=== PATIENT | female | born 1965 | race Caucasian/White ===

== ENCOUNTER 2017-02-24 09:30 | Emergency (ER) | payer BC ==
[~2017-02-24] VITALS: Ht 167.6 cm; Wt 96.2 kg
--- NOTE | ~2017-02-24 | EKG ---
[place] [address] [facility] [place] [address] ELECTROCARDIOGRAM REPORT Name: DALYVALENTIN Rivers [facility] [id number] Admission: 02/24/17 Attend Phys: Discharge: 02/24/17 Date of : 67 Report #: [id number] THIS REPORT FOR: //name// [facility] ED Test Date: 2017-02-24 Test Time: 09:41:02 Pat Name: VALENTIN KAUFFMAN Department: Room: Gender: F Filling Technician: Lindsay MARTINEZ RN : 1965 Requested By: Consuelo Gil Order Number: [id number] MD: Hunter Najera Measurements Intervals [place] Rate: 82 P: 40 MI: 160 QRS: 30 QRSD: 104 T: 23 QT: 369 QTc: 431 Interpretive Statements Sinus rhythm Normal tracing No previous ECG available for comparison Electronically Signed On 02-25-2017 9:18:26 ARCHIVAL RECORDS CLERK by Hunter Najera [email or web address] <ELECTRONICALLY SIGNED> By: Hunter Najera MD, [facility] 02/25/17 0918 0941 0941 Hunter Najera MD, FACC /EPI
[~2017-02-24 09:30] MED LIST: AMITRIPTYLINE H10 M1 PO; HYDROCODONE-AP1 EAC6 PO; LIORESAL 10 MG10 MG; MELOXICAM7.5 MG PO; MIRAPEX1 MG PO
[2017-02-24 10:09] LABS: EOSINOPHILS 1.3 % (0.0-3.0); HEMATOCRIT 38.2 % (37.0-47.0); LYMPHOCYTES 33.4 % (24.0-44.0); MCH 28.3 pg (26.0-34.0); MCHC 34.1 g/dL (28.0-37.0); PLATELET COUNT 214 thou/uL (150-400); POLYS 56.3 % (36.0-66.0); RDW 15.1 % (10.5-14.5); WBC 7.1 thou/uL (4.0-11.0)
[2017-02-24 10:11] LABS: MANUAL DIFF NO
[2017-02-24 10:50] LABS: ANION GAP 11 mmol/L (7-16); BUN 16 mg/dL (7-18); CALCIUM 8.4 mg/dL (8.5-10.1); CHLORIDE 110 mmol/L (98-107); CO2 23 mmol/L (21-32); CREATININE 0.9 mg/dL (0.6-1.0); GLUCOSE 100 mg/dL (74-106); POTASSIUM 3.9 mmol/L (3.5-5.1); SODIUM 144 mmol/L (136-145)
[2017-02-24 11:00] LABS: TROPONIN-I < 0.04 ng/mL (<0.06)
[2017-02-24 12:30] VITALS: BP 140/69
== END 2017-02-24 12:31 | disposition home or self-care (01) ==
LOC: ER 09:30
PROVIDERS: Emergency Medicine
DX: R42 Dizziness and giddiness (principal); R00.2 Palpitations; Z87.891 Personal history of nicotine dependence; Z88.2 Allergy status to sulfonamides; Z88.0 Allergy status to penicillin; Z88.1 Allergy status to other antibiotic agents

== ENCOUNTER → 2017-03-06 | Outpatient (CLI) | payer BC ==
--- NOTE | ~2017-03-06 | P ---
[facility] [place] [address] PROCEDURE REPORT Name: DALYVALENTIN SIU Room #: REG [facility] Siddharth.#: [id number] Admission: 03/06/17 Attend Phys: Lexie Velasquez MD, Discharge: Date of : 67 Report #: [id number] THIS REPORT FOR: //name// CC: Lexie Taylor MD DATE OF SERVICE: 03/06/2017 HOLTER MONITOR REPORT DATE OF PROCEDURE: 03/06/2017 through 03/08/2017. This is a 48-hour Holter. INDICATION FOR THE PROCEDURE: Syncope. The patient was monitored for 48 hours. The entire time period was analyzed. A total of 265,110 beats were analyzed. The average heart rate was 92. The basic rhythm was normal sinus rhythm. The minimal heart rate was 54 beats per minute at 5:23 a.m. The maximum heart rate was 174 beats per minute at 10:39 a.m. At that time, the patient was working out in the gym. There were no ventricular premature beats seen. There were 11 supraventricular premature beats seen. There was no atrial fibrillation. There was no ventricular tachycardia. There were no pauses. There was no supraventricular tachycardia. At the time of the maximum heart rate, the rhythm was sinus tachycardia. The patient was not symptomatic during the record. IMPRESSION: Normal sinus rhythm with periods of mild sinus bradycardia and periods of sinus tachycardia that were appropriate. There were rare supraventricular premature beats. <ELECTRONICALLY SIGNED> By: Lexie Velasquez MD, FAC 03/24/17 1500 1310 1348 Lexie Velasquez MD, [facility] /nt
--- NOTE | ~2017-03-06 | 24HR ---
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 The study duration was 48 hours and the technical quality was good. 2. The predominant rhythm was sinus rhythm at an average heart rate of 92 bpm, range 54-174 bpm. The longest RR interval was 1.2 seconds 3. Rare, isolated atrial premature complexes. No atrial fibrillation or atrial flutter. No supraventricular tachycardia. No episodes of heart block. 4. No ventricular ectopy during the monitoring period. No ventricular tachycardia 5. No symptoms reported. Electronically Signed On 03-17-2017 17:34:25 AUTOMATION TECHNICIAN by Hunter Najera [email or web address] <ELECTRONICALLY SIGNED> By: Hunter Najera MD, [facility] 03/17/17 1734 1137 1137 Hunter Najera MD, [facility] /EPI
== END ==
LOC: CV 11:10
DX: R07.9 Chest pain, unspecified (principal); R55 Syncope and collapse; R06.02 Shortness of breath; R42 Dizziness and giddiness

== ENCOUNTER → 2017-03-24 | Outpatient (CLI) | payer BC ==
--- NOTE | ~2017-03-24 | EEG ---
[facility] [address] [place] [address] ELECTROENCEPHALOGRAM Name: VALENTIN KAUFFMAN Room #: REG [facility] MOlga Lidia.#: [id number] Admission: 03/24/17 Attend Phys: Lexie Velasquez MD, Discharge: Date of : 67 Report #: [id number] THIS REPORT FOR: //name// CC: Lexie Taylor DATE OF SERVICE: 03/24/2017 This patient is being evaluated for episode of syncope. EEG was done by placing the electrodes by standard 10-20 system of electrode placement. Both referential and sequential montages were used for recording. Background activity in this patient's EEG is about 9 Hz and 40 microvolts. It is a symmetrical activity. The patient went to sleep that was associated with bilaterally symmetrical sleep spindle and vertex sharp waves. Throughout the record, no active epileptiform activity was noticed. IMPRESSION: This patient's EEG is within normal limit. Thank you very much for this referral. <ELECTRONICALLY SIGNED> By: Wander Spicer MD 03/27/172001 1610 1755 Wander Spicer MD /nt
== END ==
LOC: CAT 07:29
DX: R55 Syncope and collapse (principal)